=== PATIENT | female | born 1960 | race Caucasian/White ===

== ENCOUNTER 2019-01-23 12:55 | Emergency (ER) | payer OTHER ==
[~2019-01-23] VITALS: Ht 157.5 cm; Wt 81.6 kg
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
[2019-01-23] MEDS: ONDANSETRON ODT 4 MG TAB.RAPDIS SL ONE (13:09)
[2019-01-23] MEDS: ACETAMINOPHEN ES 500 MG TABLET PO ONE (13:09)
--- NOTE | 2019-01-23 13:10 | NUR ---
PT DENIES NECK PAIN, DENIES CERVICAL TENDERNESS.
[2019-01-23] MEDS ORDERED: ONDANSETRON ODT 4 MG TAB.RAPDIS ONE (13:12)
[2019-01-23] MEDS ORDERED: ACETAMINOPHEN ES 500 MG TABLET ONE (13:12)
--- NOTE | 2019-01-23 13:57 | NUR ---
Patient discharged to home in stable conditon. Written and verbal after care instructions given. Patient verbalizes understanding of instructions. ALL BELONGINGS W/ PT. PT SELF-AMBULATED W/O DIFFICULTY.
[2019-01-23 13:58] VITALS: BP 121/72
== END 2019-01-23 13:58 | disposition home or self-care (01) ==
LOC: ER 12:55
DX: M54.2 Cervicalgia (principal); V89.2XXA Person injured in unspecified motor-vehicle accident, traffic, initial encounter; Y93.89 Activity, other specified; Y92.89 Other specified places as the place of occurrence of the external cause; Y99.8 Other external cause status
CPT/HCPCS: 71045; A4663; A9150; Q0162